=== PATIENT | female | born 2000 | race Two or more races ===

== ENCOUNTER 2024-04-15 10:42 | Emergency (ER) | payer OTHER, SELFPAY ==
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
[2024-04-15 10:59] VITALS: BP 144/97; PULSE 83; RESP 19; TEMP 36.6; O2SAT 98; BMI 27.4
--- OUTSIDE RECORDS SUMMARY | 2024-04-15 12:22 | XMS_ITS | Encounter Summary ---
Author Organization [facility] Address [address] [place] [address] Care Team Providers Care Project Construction Assistant Manager Name Role Phone Alina Beltran NP Primary Care Provider Encounter Details Date Type Department Care Team (Late st Contact Info) Description 08/01/[address] [facility] [address] [place] [id number] Carri Curiel, JOYCE [address] [place] [address] Social History Tobacco Use Types Packs/Day Years Used Date Smoking Tobacco: Never Smokeless Tobacco: Never Alcohol Use Standard Drinks/Week Comments Never 0 (1 standard drink = 0.6 oz pur e alcohol) Social Connections Answer Date Recorded Social Connections and Isolation 0 07/11/2021 Financial Resource Strain Answer Date R ecorded Financial Resource Strain 0 2021 Stress Answer Date Recorded Stress 0 07/11/2021 Physical Activity Answer Date Recorded Physical Activity 0 07/11/2021 Food Insecurity Answer Date Recorded Food 99 07/18/2021 Transportation Needs Answer Date Record ed Transportation 2 07/18/2021 Housing Stability Answer Date Recorded Housing 99 07/18/2021 Safety and Environment Answer Date Fred rded Safety 1 07/18/2021 Utilities Answer Date Recorded Utilities 1 07/18/2021 Employment Answer Date Recorded Employment 0 07/11/2021 Comments Unknown Sex and Gender Information Value Date Recorded Sex Assigned at Female 07/18/2021 6:30 AM PDT Legal Sex Female 6:06 AM PST Gender Identity Female 07/18/2021 6:30 AM PDT Sexual Orientation Lesbian 07/18/2021 6: 30 AM PDT COVID-19 Exposure Response Date Recorded In the last 10 days, have yo u been in contact with someone who was confirmed or suspected to have Coronavirus/COVID-19? No / Unsure 07/23/2021 10:18 AM EDT documented as of this encounter Plan of Treatment Not on file documented as of this encounter Visit Diagnoses Not on filedocumented in this encounter Additional Health Concerns Assessment Noted Time PHQ-9 Depression Total Score: 11 022 9:31 AM PDT documented as of this encounter Care Teams Project Construction Assistant Manager Relationship Specialty Start Date End Date Alina Beltran NP [address] [place] [address] PCP - General Internal Medicine 10/06/21 documented as of this encounter
--- OUTSIDE RECORDS SUMMARY | 2024-04-15 12:22 | XMS_ITS | Continuity of Care Document ---
Author Organization [facility] vices Address [address] [place] [address] Phone Care Team Providers Care Branch Service Associate Name Role Phone Kulwinder Carter RDH Unavailable Unavailable Procedures Procedure Date Prophylaxis-Adult Oral Hygiene Instructions Treatment Plan Not Started Advance Directives Directive Yes / No Effective Date File Name No Information Encounters Encounter Description Practice Location Reason(s) For Visit Diagnoses Date Provider Providers Copied on Encounter [facility], [address] [place], [address], [place] tel:[phone] [facility] Dental Encounter for dental exam and cleaning w/o abnormal findings Raul Miramontes. [address], [id number] [address] [place] [address], [id number], [place]. tel:[phone] Family History Family Member Type Diagnosis Age At Onset No Information Payers Payer name Insurance type Covered libertarian ID Authoriza tion(s) D Medicaid [id number] Social History Type Description Quantity Date Captured Comments Sex Female Smoking Status No Information Sexual Orientation Don't Know Gender Identity Female Chief Complaint And Reason For Visit No Information Reason For Referral Reason For Referral No Information History Of Present Illness Encounter Date Complaint History Of Prese nt Illness No Information Functional Status Date Functional Assessmen t No Information Instructions Date Instruction Additional Infor mation No Information Assessments Type Assessment Date No Information Patient Care Teams Name Effective Dates (start - stop) Status Members No Information
--- OUTSIDE RECORDS SUMMARY | 2024-04-15 12:22 | XMS_ITS | Encounter Summary ---
Author Organization [facility] Address [address] [place] [address] Care Team Providers Care Buffing Wheel Inspector Name Role Phone Alina Beltran NP Primary Care Provider Encounter Details Date Type Department Care Team (Late st Contact Info) Description 09/05/2021 Dental Interim Note [facility] Dental [address] [place] [phone] Carri Curiel DMD [address] [place] [address] Social History Tobacco Use Types Packs/Day Years [...] 99 07/18/2021 Safety and Environment Answer Date Rfed rded Safety 1 07/18/2021 Utilities Answer Date Recorded Utilities 1 07/18/2021 Employment Answer Date Recorded Employment 0 07/11/2021 Comments Unknown Sex and Gender Information Value Date Recorded Sex Assigned at Female 07/18/2021 6:30 AM PDT Legal Sex Female 6:06 AM PST Gender Identity Female 07/18/2021 6:30 AM PDT Sexual Orientation Lesbian 07/18/2021 6: 30 AM PDT documented as of this encounter Plan of Treatment Not on file documented as of this encounter Visit Diagnoses Not on filedocumented in this encounter Additional Health Concerns Assessment Noted Time PHQ-9 Depression Total Score: 11 022 9:31 AM PDT documented as of this encounter Care Teams Buffing Wheel Inspector Relationship Specialty Start Date End Date Alian Beltran NP [address] [place] [address] PCP - General Internal Medicine 10/06/21 documented as of this encounter
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
--- OUTSIDE RECORDS SUMMARY | 2024-04-15 12:22 | XMS_ITS | Encounter Summary ---
Author Organization [facility] Address [address] [place] [address] Care Team Providers Care Sew Out Operator Name Role Phone Alina Beltran NP Primary Care Provider Encounter Details Date Type Department Care Team (Late st Contact Info) Description 09/12/2021 Dental Interim Note [facility] Dental [address] [place] [phone] Carri Curiel DMD [address] [place] [address] Social History Tobacco Use Types Packs/Day Years [...] documented as of this encounter Care Teams Sew Out Operator Relationship Specialty Start Date End Date Alina Beltran NP [address] [place] [address] PCP - General Internal Medicine 10/06/21 documented as of this encounter
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
[2024-04-15] MEDS: Lidocaine 4 % Patch ADH..PATCH 1 PATCH TRANSDERMA (13:22)
[2024-04-15 14:24] VITALS: BP 142/92; PULSE 75; RESP 13; TEMP 36.7; O2SAT 99
[2024-04-15 14:43] VITALS: BP 142/92; PULSE 75; RESP 13; TEMP 36.7; O2SAT 99
== END 2024-04-15 14:43 | disposition home or self-care (01) ==
PROVIDERS: Emergency Provider Emergency Medicine; PCP Nurse Practitioner
DX: S39.012A Strain of muscle, fascia and tendon of lower back, initial encounter (principal); V43.02XA Car driver injured in collision with other type car in nontraffic accident, initial encounter; Y93.89 Activity, other specified; Y92.59 Other trade areas as the place of occurrence of the external cause; Y99.9 Unspecified external cause status
CPT/HCPCS: 72100; 72220; 99283

== ENCOUNTER → 2024-04-15 13:04 | Outpatient (BNV) | payer MEDICAID, SELFPAY | PROVIDERS: Emergency Provider Emergency Medicine; PCP Nurse Practitioner; Visit Provider Radiology Vascular & Interventional Radiology | DX: M54.59 Other low back pain (principal) | CPT/HCPCS: 72100; 72220 ==